=== PATIENT | female | born 1985 | race Caucasian/White ===

== ENCOUNTER 2022-10-25 10:50 | Emergency (ER) | payer BC | END 2022-10-25 12:20 | disposition home or self-care (01) | LOC: CC.ED 10:50 | DX: S63.91XA Sprain of unspecified part of right wrist and hand, initial encounter (principal); Z91.040 Latex allergy status; Z91.013 Allergy to seafood; Z88.6 Allergy status to analgesic agent; Z79.899 Other long term (current) drug therapy; W10.9XXA Fall (on) (from) unspecified stairs and steps, initial encounter; Y93.01 Activity, walking, marching and hiking | CPT/HCPCS: 73110-RT; 73130-RT; 99283 ==

== ENCOUNTER 2022-11-07 10:00 | Emergency (ER) | payer BC ==
[2022-11-07 11:57] LABS: AMPHETAMINES,URINE POSITIVE (NEGATIVE); BARBITURATES,URINE NEGATIVE (NEGATIVE); BENZODIAZEPINE,URINE POSITIVE (NEGATIVE); MDMA (ECSTASY), URINE NEGATIVE (NEGATIVE); METHADONE,URINE NEGATIVE (NEGATIVE); METHAMPHETAMINES,URINE NEGATIVE (NEGATIVE); OPIATES,URINE NEGATIVE (NEGATIVE); OXYCODONE,URINE POSITIVE (NEGATIVE); PHENCYCLIDINE,URINE NEGATIVE (NEGATIVE); TCA,URINE NEGATIVE (NEGATIVE)
== END 2022-11-07 12:30 | disposition home or self-care (01) ==
LOC: CC.ED 10:00
DX: M25.561 Pain in right knee (principal); H53.2 Diplopia; R68.2 Dry mouth, unspecified; T42.1X5A Adverse effect of iminostilbenes, initial encounter; Z88.8 Allergy status to other drugs, medicaments and biological substances; Z91.040 Latex allergy status; Z91.013 Allergy to seafood
CPT/HCPCS: 36415; 80053; 80305-QW; 81003; 83735; 85025; 99283; C1758

== ENCOUNTER 2024-12-17 13:29 | Emergency (ER) | payer BC | END 2024-12-17 16:50 | disposition home or self-care (01) | LOC: CC.ED 13:29 | DX: K59.00 Constipation, unspecified (principal); Z91.013 Allergy to seafood; Z91.040 Latex allergy status; Z88.6 Allergy status to analgesic agent; Z79.899 Other long term (current) drug therapy | CPT/HCPCS: 74019; 99284 ==